=== PATIENT | female | born 1980 | race Caucasian/White ===

== ENCOUNTER 2017-01-06 18:24 | Inpatient (IN) | payer MEDICAID ==
[~2017-01-06] VITALS: Ht 152.4 cm; Wt 92.4 kg
[~2017-01-06 18:24] MED LIST: ACET500C5 PO; LANT3I SC; NOVO3I SC
[2017-01-06] MEDS: ACCUCHECK XX SCH (20:05)
--- NOTE | 2017-01-06 20:14 | HP ---
DATE OF ADMISSION: 01/06/2017 HISTORY OF PRESENT ILLNESS: A 36-year-old female, 3, para 0-0-2-0 at 8-weeks' gestation by last menstrual period, who is admitted due to uncontrolled diabetes. PAST MEDICAL HISTORY: Diabetes; the patient has not been taking any medications since September 2016 . PAST SURGICAL HISTORY: Unremarkable. ALLERGIES: NO KNOWN ALLERGIES. FAMILY HISTORY: Diabetes. PHYSICAL EXAMINATION VITAL SIGNS: The patient is afebrile. Vital signs stable. HEAD, NECK AND CHEST: Within normal limits. ABDOMEN: Soft, nontender, nondistended. PELVIC: Normal. EXTREMITIES: Within normal limits. NEUROLOGIC: Within normal limits. IMPRESSION 1. at 8 weeks by dates. 2. Uncontrolled diabetes mellitus. PLAN: Admit. A 2000-calorie ADA diet. Accu-Cheks; fasting and 2 hour postprandial. A perinatolog y consultation for insulin regimen. Obstetric ultrasound. Dictated By: DANAE PEDRO/LUCIA Conf#: [id number] DID#: [id number]
[2017-01-06 20:39] VITALS: Ht 152.4 cm; Wt 92.4 kg
[2017-01-06 20:40] VITALS: BP 116/67; PULSE 71; RESP 20
[2017-01-06 21:19] LABS: ADD SCAN DIFF NO
[2017-01-06 21:21] LABS: BASOPHILS % 0.3 % (0.0-2.0); EOSINOPHILS # 0.2 10^3/ul (0.0-0.5); EOSINOPHILS % 1.8 % (0.0-7.0); HEMATOCRIT 40.3 % (37.0-47.0); HEMOGLOBIN 13.5 g/dl (12.0-16.0); LYMPHOCYTES # 3.9 10^3/ul (0.8-2.9); LYMPHOCYTES % 36.2 % (15.0-51.0); MEAN CORPUSCULAR HEMOGLOBIN 28.6 pg (29.0-33.0); MEAN CORPUSCULAR HGB CONC 33.5 g/dl (32.0-37.0); MEAN CORPUSCULAR VOLUME 85.4 fl (82.0-101.0); MEAN PLATELET VOLUME 10.4 fl (7.4-10.4); MONOCYTE # 0.6 10^3/ul (0.3-0.9); MONOCYTES % 5.3 % (0.0-11.0); NEUTROPHILS % 56.1 % (39.0-77.0); PLATELET COUNT 305 10^3/UL (140-415); RED BLOOD COUNT 4.72 10^6/ul (4.20-5.40); RED CELL DISTRIBUTION WIDTH 12.7 % (11.5-14.5); WHITE BLOOD COUNT 10.7 10^3/ul (4.8-10.8)
[2017-01-06 21:36] LABS: ADD UMIC NO; URINE BILIRUBIN (Dip) NEGATIVE (NEGATIVE); URINE BLOOD (Dip) NEGATIVE (NEGATIVE); URINE COLOR YELLOW (YELLOW); URINE GLUCOSE (Dip) NEGATIVE (NEGATIVE); URINE KETONES (Dip) 15 (NEGATIVE); URINE LEUKOCYTE ESTERASE (Dip) NEGATIVE (NEGATIVE); URINE NITRITE (Dip) NEGATIVE (NEGATIVE); URINE TOTAL PROTEIN (Dip) NEGATIVE (NEGATIVE); URINE UROBILINOGEN (Dip) 0.2 E.U./dL (0.1-1.0)
[2017-01-06 21:39] LABS: ALBUMIN 3.9 g/dl (3.3-4.9); POTASSIUM 3.5 mmol/L (3.5-5.1)
[2017-01-06 21:42] LABS: ALBUMIN/GLOBULIN RATIO 1.14; BILIRUBIN,INDIRECT 0.2 mg/dl (0-1.1); BILIRUBIN,TOTAL 0.2 mg/dl (0.2-1.3); CREATININE 0.55 mg/dl (0.44-1.00); TOTAL PROTEIN 7.3 g/dl (6.1-8.1)
[2017-01-06 21:43] LABS: CALCIUM 9.2 mg/dl (8.4-10.2)
--- NOTE | 2017-01-06 22:38 | RADRPT ---
PROCEDURE: US OB. CLINICAL INDICATION: Pelvic pain. . TECHNIQUE: Transabdominal and transvaginal views of the pelvis are available for review. COMPARISON: No prior studies are available for comparison. FINDINGS: Intrauterine gestational sac, yolk sac and pole are visualized with the following information with the following information: [place]-rump length:0.84 cm heart rate:137 bpm Gestational sac:1.80 cm Ultrasound estimated gestational age:6 weeks 5 days No subchorionic hemorrhage is demonstrated. Incidental simple cyst of the right ovary measures 1.5 x 1 x 1 cm, overall ovarian size measuring 3. 4 x 2.3 x 2.2 cm. The left ovary is not visualized A trace amount of cul-de-sac free fluid is present. RPTAT:HJJR IMPRESSION: 1. Single viable intrauterine with an estimated gestational age of 6 weeks 5 days, the es timated date of delivery 08/27/2017. 2. Incidental simple right ovarian cyst of 1.5 cm. 3. The left ovary is not visualized. 4. Small amount of free fluid in the pelvic cul-de-sac possibly physiologic. Physician Abraham Date Time Electronically viewed and signed by Physician Abraham on 01/06/2017 22:38 /
[2017-01-07] MEDS: ACCUCHECK XX SCH ×7 (07:30→20:51)
[2017-01-07] MEDS ORDERED: GLUCAGON 1 MG INJ IM PRN (11:30)
[2017-01-07] MEDS ORDERED: DEXTROSE 50% 50 ML SYRINGE IV PRN ×2 (11:30)
[2017-01-07] MEDS ORDERED: GLUCOSE GEL 15 GRAM TUBE PO PRN ×2 (11:30)
[2017-01-07] MEDS ORDERED: GLUCOSE GEL 15 GRAM TUBE BUCCAL PRN (11:30)
[2017-01-07] MEDS: INSULIN ASPART [NOVOLOG] 3 ML PEN SC SCH ×3 (15:13→21:27)
--- NOTE | 2017-01-07 18:22 | QN ---
Documentation Comment No complaint Afebrile VSS Blood glucose elevated. Insulin regimen per Perinatology. DANAE MONTES MD Jan 07, 2017 18:22
[2017-01-07 20:22] LABS: SCRET 0.55 mg/dl (0.44-1.00)
[2017-01-07] MEDS ORDERED: NPH, HUMAN INSULIN ISOPHANE 3ML VIAL SC SCH (21:00)
[2017-01-08] MEDS ORDERED: INSULIN ASPART [NOVOLOG] 3 ML PEN SC SCH ×3 (07:00→17:35)
[2017-01-08] MEDS: ACCUCHECK XX SCH ×6 (08:00→20:05)
[2017-01-08] MEDS ORDERED: GLUCOSE GEL 15 GRAM TUBE BUCCAL PRN (08:00)
[2017-01-08] MEDS ORDERED: GLUCAGON 1 MG INJ IM PRN (08:00)
[2017-01-08] MEDS ORDERED: NPH, HUMAN INSULIN ISOPHANE 3ML VIAL SC SCH ×3 (08:00→21:00)
[2017-01-08] MEDS ORDERED: GLUCOSE GEL 15 GRAM TUBE PO PRN ×2 (08:00)
[2017-01-08] MEDS ORDERED: DEXTROSE 50% 50 ML SYRINGE IV PRN ×2 (08:00)
[2017-01-08] MEDS: INSULIN ASPART [NOVOLOG] 3 ML PEN SC SCH ×3 (11:08→20:05)
--- NOTE | 2017-01-08 14:37 | QN ---
Documentation Comment No complaint Afebrile VSS Adjust insulin regimen per Perinatology. DANAE MONTES MD Jan 08, 2017 14:36
[2017-01-09] MEDS ORDERED: INSULIN ASPART [NOVOLOG] 3 ML PEN SC SCH ×3 (07:00→18:30)
[2017-01-09] MEDS ORDERED: NPH, HUMAN INSULIN ISOPHANE 3ML VIAL SC SCH ×2 (07:30→21:00)
[2017-01-09] MEDS: ACCUCHECK XX SCH ×3 (08:39→15:00)
[2017-01-09] MEDS: INSULIN ASPART [NOVOLOG] 3 ML PEN SC SCH ×2 (11:00→15:07)
[2017-01-10] MEDS ORDERED: NPH, HUMAN INSULIN ISOPHANE 3ML VIAL SC SCH (07:30)
--- NOTE | 2017-01-10 11:31 | DS ---
DATE OF ADMISSION: 01/06/2017 DATE OF DISCHARGE: 01/09/2017 ADMITTING DIAGNOSES: 1. at 8 weeks. 2. Uncontrolled Diabetes mellitus. HISTORY: A 36-year-old female, 3, para 0-0-2-0 at 8 weeks' gestation by last menstrual nga od who was admitted due to uncontrolled diabetes mellitus. The patient was placed on diabetic diet, and the patient's blood glucose was monitored. Perinatology consultation was obtained. The patien t was placed on an insulin regimen. The patient's insulin regimen was adjusted by perinatology, and the patient's blood glucose was better controlled. On 01/09/2017, the patient was cleared for disc harge. CONDITION ON DISCHARGE: Stable. DISCHARGE INSTRUCTIONS: Diet 2000 calorie ADA diet. Activities as tolerated. MEDICATIONS: Continue with insulin regimen per perinatology. Continue with vitamins. FOLLOWUP: In clinic in 5 days. FINAL DIAGNOSES: 1. , not delivered. 2. Diabetes mellitus, controlled by insulin. Dictated By: DANAE PEDRO/LUCIA Conf#: [id number] DID#: [id number]
[2017-01-10] MEDS ORDERED: INSULIN ASPART [NOVOLOG] 3 ML PEN SC SCH (17:35)
--- NOTE | 2017-01-12 18:02 | RADRPT ---
Vent Rate: 76 bpm RR Interval: 0 msec VT Interval: 136 msec QRS Duration: 104 msec QT Interval: 378 msec QTC Interval: 425 msec P-R-T [place]: 17 - 6 - 26 degrees Normal sinus rhythm Normal ECG Electronically Signed By: Alli Estrada [id number]
== END 2017-01-09 20:04 | disposition home or self-care (01) | DRG 781 ==
LOC: OBG 18:24
PROVIDERS: ADMIT Obstetrics & Gynecology; ATTEND Obstetrics & Gynecology
DX: O24.911 Unspecified diabetes mellitus in pregnancy, first trimester (principal); Z3A.08 8 weeks gestation of pregnancy; Z79.4 Long term (current) use of insulin
CPT/HCPCS: 76801; 76817; 80053; 81003; 82575; 82962; 83036; 84156; 85025; 93005; J1815

== ENCOUNTER 2017-01-31 11:45 | Emergency (ER) | payer MEDICAID ==
[~2017-01-31] VITALS: Wt 95.0 kg
[~2017-01-31 11:45] MED LIST changes: -LANT3I SC; -NOVO3I SC
[2017-01-31] MEDS ORDERED: METOCLOPRAMIDE 10 MG INJ IV STA (12:34)
[2017-01-31] MEDS ORDERED: SOD CHLORIDE 0.9% 1,000 ML IV STA (12:34)
[2017-01-31] MEDS ORDERED: ACETAMINOPHEN 325 MG TAB PO ONE (13:00)
[2017-01-31 13:12] LABS: ADD SCAN DIFF NO
[2017-01-31 13:15] LABS: BASOPHILS % 0.2 % (0.0-2.0); EOSINOPHILS # 0.1 10^3/ul (0.0-0.5); EOSINOPHILS % 0.6 % (0.0-7.0); HEMATOCRIT 42.1 % (37.0-47.0); HEMOGLOBIN 14.2 g/dl (12.0-16.0); LYMPHOCYTES # 2.2 10^3/ul (0.8-2.9); LYMPHOCYTES % 16.4 % (15.0-51.0); MEAN CORPUSCULAR HEMOGLOBIN 29.1 pg (29.0-33.0); MEAN CORPUSCULAR HGB CONC 33.7 g/dl (32.0-37.0); MEAN CORPUSCULAR VOLUME 86.3 fl (82.0-101.0); MONOCYTE # 0.7 10^3/ul (0.3-0.9); MONOCYTES % 5.5 % (0.0-11.0); NEUTROPHIL # 10.1 10^3/ul (1.6-7.5); NEUTROPHILS % 76.7 % (39.0-77.0); PLATELET COUNT 354 10^3/UL (140-415); RED BLOOD COUNT 4.88 10^6/ul (4.20-5.40); RED CELL DISTRIBUTION WIDTH 13.1 % (11.5-14.5); WHITE BLOOD COUNT 13.2 10^3/ul (4.8-10.8)
[2017-01-31 13:20] LABS: ADD UMIC YES; URINE BILIRUBIN (Dip) NEGATIVE (NEGATIVE); URINE BLOOD (Dip) NEGATIVE (NEGATIVE); URINE COLOR LT. YELLOW (YELLOW); URINE KETONES (Dip) 3+ (NEGATIVE); URINE LEUKOCYTE ESTERASE (Dip) NEGATIVE (NEGATIVE); URINE NITRITE (Dip) NEGATIVE (NEGATIVE); URINE TOTAL PROTEIN (Dip) 2+ (NEGATIVE); URINE UROBILINOGEN (Dip) 0.2 E.U./dL (0.1-1.0)
[2017-01-31 13:23] LABS: ALBUMIN 4.6 g/dl (3.3-4.9)
[2017-01-31 13:24] LABS: POTASSIUM 3.5 mmol/L (3.5-5.1)
[2017-01-31 13:26] LABS: ALBUMIN/GLOBULIN RATIO 1.15; BILIRUBIN,INDIRECT 0.6 mg/dl (0-1.1); BILIRUBIN,TOTAL 0.6 mg/dl (0.2-1.3); CREATININE 0.47 mg/dl (0.44-1.00); TOTAL PROTEIN 8.6 g/dl (6.1-8.1)
[2017-01-31 13:27] LABS: CALCIUM 9.7 mg/dl (8.4-10.2)
[2017-01-31 13:36] LABS: BACTERIA,URINE FEW; SQUAMOUS EPITHELIAL CELL,UR MODERATE; URINE RBCS NONE SEEN /HPF (0)
[2017-01-31] MEDS ORDERED: METO10TA92 PO (14:42)
--- NOTE | 2017-01-31 14:45 | ERD ---
ER Documentation Chief Complaint Date/Time DATE: 01/31/17 TIME: 14:43 Chief Complaint ABD PAIN, 10 WKS PG, NO VB, ALSO N/V HPI This 36-year-old female presents with epigastric abdominal pain and vomiting starting the last day. She is approximately 10 weeks by dates and a history of a normal ultrasound and is receiving care. She denies any vaginal bleeding, dysuria, fevers, diarrhea or lower abdominal pain per ROS All systems reviewed and are negative except as per history of present illness. Medications Home Meds Active Scripts Metoclopramide* (Reglan*) 10 Mg Tablet, 10 MG PO Q6H Y for NAUSEA AND OR VOMITING, #20 TAB Prov:KRYSTAL FOSTER MD 01/31/17 Acetaminophen* (Tylophen*) 500 Mg Capsule, 500 MG PO Q6H Y for PAIN, #30 TAB Prov:DELMIS MAI PA-C 07/19/15 Allergies Allergies: Coded Allergies: No Known Allergy (Unverified , 01/31/17) PMhx/Soc History of Surgery: No Anesthesia Reaction: No Hx Neurological Disorder: No Hx Respiratory Disorders: No Hx Cardiac Disorders: No Hx Psychiatric Problems: No Hx Miscellaneous Medical Probl: Yes (diabetes mellitus) Hx Alcohol Use: No Hx Substance Use: No Hx Tobacco Use: No Smoking Status: Never smoker Physical Exam Vitals Vital Signs Date Time Temp Pulse Resp B/P Pulse Ox O2 Delivery O2 Flow Rate FiO2 01/31/17 11:47 98.6 97 18 156/82 98 Physical Exam Const: [] Alert, not ill-appearing. Head: Atraumatic Eyes: Normal Conjunctiva ENT: Normal External Ears, Nose and Mouth. Neck: Full range of motion..~ No meningismus. Resp: Clear to auscultation bilaterally Cardio: Regular rate and rhythm, no murmurs Abd: Soft, minimal epigastric tenderness. No lower abdominal tenderness and no rebound, non distended. Normal bowel sounds Skin: No petechiae or rashes Back: No midline or flank tenderness Ext: No cyanosis, or edema Neur: Awake and alert Psych: Normal Mood and Affect Result Diagram: 01/31/17 1300 01/31/17 1300 Results 24 hrs Laboratory Tests Test 01/31/17 13:00 White Blood Count 13.210^3/ul Red Blood Count 4.8810^6/ul Hemoglobin 14.2g/dl Hematocrit 42.1% Mean Corpuscular Volume 86.3fl Mean Corpuscular Hemoglobin 29.1pg Mean Corpuscular Hemoglobin Concent 33.7g/dl Red Cell Distribution Width 13.1% Platelet Count 25087^3/UL Mean Platelet Volume 10.0fl Neutrophils % 76.7% Lymphocytes % 16.4% Monocytes % 5.5% Eosinophils % 0.6% Basophils % 0.2% Nucleated Red Blood Cells % 0.0/100WBC Neutrophils # 10.110^3/ul Lymphocytes # 2.210^3/ul Monocytes # 0.710^3/ul Eosinophils # 0.110^3/ul Basophils # 0.010^3/ul Nucleated Red Blood Cells # 0.010^3/ul Urine Color LT. YELLOW Urine Clarity HAZY Urine pH 6.0 Urine Specific [place] 1.025 Urine Ketones 3+ Urine Nitrite NEGATIVE Urine Bilirubin NEGATIVE Urine Urobilinogen 0.2 E.U./dL Urine Leukocyte Esterase NEGATIVE Urine Microscopic RBC NONE SEEN/HPF Urine Microscopic WBC 2-5/HPF Urine Squamous Epithelial Cells MODERATE Urine Bacteria FEW Urine Hemoglobin NEGATIVE Urine Glucose 0.1%% Urine Total Protein 2+ Sodium Level 137mmol/L Potassium Level 3.5mmol/L Chloride Level 102mmol/L Carbon Dioxide Level 21mmol/L Anion Gap 18 Blood Urea Nitrogen 5mg/dl Creatinine 0.47mg/dl Glucose Level 158mg/dl Calcium Level 9.7mg/dl Total Bilirubin 0.6mg/dl Direct Bilirubin 0.00mg/dl Indirect Bilirubin 0.6mg/dl Aspartate Amino Transf (AST/SGOT) 19IU/L Alanine Aminotransferase (ALT/SGPT) 23IU/L Alkaline Phosphatase 63IU/L Total Protein 8.6g/dl Albumin 4.6g/dl Globulin 4.00g/dl Albumin/Globulin Ratio 1.15 Lipase 36U/L Current Medications Medications (Trade) Dose Ordered Sig/Denise Route PRN Reason Start Time Stop Time Status Last Admin Dose Admin Sodium Chloride (NS) 1,000 ml @ 1,000 mls/hr Q1H STAT IV 01/31/17 12:34 01/31/17 13:33 DC 01/31/17 12:59 Metoclopramide HCl (Reglan) 10 mg ONCE STAT IV 01/31/17 12:34 01/31/17 12:35 DC 01/31/17 12:59 Acetaminophen (Tylenol Tab) 650 mg ONCE ONCE PO 01/31/17 13:00 01/31/17 13:01 DC 01/31/17 12:59 Procedures/MDM Patient presents with vomiting and epigastric abdominal pain of uncertain etiology. An IV was obtained patient was given 1 L normal saline IV. CBC and CMP and lipase showed no acute abnormalities except for slight leukocytosis. Patient was given Reglan 10 mg IV and Tylenol. Patient had improvement of headache no further episodes of vomiting. Patient may have vomiting due to or possibly gastroenteritis. Signs and symptoms not consistent with acute abdomen, obstruction, complications of . Patient should return for new or worsening symptoms with primary doctor this week. The patient was stable with no new complaints during the ER course. Clinically, there is no current evidence to suggest meningitis, sepsis, acute abdomen, pneumonia, acute coronary syndrome, pulmonary embolism, or any other emergent condition appearing to require further evaluation or hospitalization. The patient should certainly return for any new or worsening symptoms per the aftercare instructions. They should otherwise follow-up with her primary care doctor for reevaluation this week. Departure Diagnosis: Primary Impression: Vomiting Vomiting type: unspecified Vomiting Intractability: non-intractable Nausea presence: unspecified Qualified Code: R11.10 - Non-intractable vomiting, presence of nausea not specified, unspecified vomiting type Additional Impression: Headache Headache type: unspecified Headache chronicity pattern: unspecified pattern Intractability: not intractable Qualified Code: R51 - Nonintractable headache, unspecified chronicity pattern, unspecified headache type Condition: Stable Patient Instructions: Headache, Unspecified, Vomiting (6Y-Adult) Additional Instructions: Labs show no significant abnormalities today. Drink plenty of fluids at home and follow-up with with OB or primary doctor or return for new or worsening symptoms-bleeding, pain, vomiting despite treatment, fevers. Okay to take Tylenol 500 mg every 4-6 hours. KRYSTAL FOSTER MD Jan 31, 2017 14:45
[2017-01-31 14:54] VITALS: BP 125/80; PULSE 74; RESP 16; TEMP 98.3
== END 2017-01-31 14:55 | disposition home or self-care (01) ==
LOC: FTE 11:45
DX: O21.9 Vomiting of pregnancy, unspecified (principal); O99.89 Other specified diseases and conditions complicating pregnancy, childbirth and the puerperium; R51 Headache; O24.111 Pre-existing type 2 diabetes mellitus, in pregnancy, first trimester; E11.9 Type 2 diabetes mellitus without complications; Z3A.10 10 weeks gestation of pregnancy
CPT/HCPCS: 80053; 81001; 81003; 83690; 85025; J2765; J7030; Z7610; 36415; 96374